=== PATIENT | male | born 1995 | race Caucasian/White ===

== ENCOUNTER 2018-12-05 15:48 | Emergency (ER) | payer MEDICAID ==
[~2018-12-05] VITALS: Ht 175.3 cm; Wt 75.0 kg
[2018-12-05 15:56] VITALS: BP 132/52
[2018-12-05] MEDS ORDERED: BACITRACIN ZINC OINT UDPKT TOP ONE (17:15)
[2018-12-05] MEDS ORDERED: KETOROLAC 60MG/2ML VIAL IM ONE (17:15)
== END 2018-12-05 19:37 | disposition home or self-care (01) ==
LOC: ER 15:48
DX: S00.83XA Contusion of other part of head, initial encounter (principal); T25.021A Burn of unspecified degree of right foot, initial encounter; T25.022A Burn of unspecified degree of left foot, initial encounter; F11.20 Opioid dependence, uncomplicated; Y04.0XXA Assault by unarmed brawl or fight, initial encounter; X19.XXXA Contact with other heat and hot substances, initial encounter; Y93.89 Activity, other specified; Y92.488 Other paved roadways as the place of occurrence of the external cause
CPT/HCPCS: 70486; 99284; J1885